=== PATIENT | female | born 2000 | race Two or more races ===

== ENCOUNTER 2021-08-03 09:00 | Outpatient (CLI) | payer OTHER | END 2021-08-03 09:30 | disposition home or self-care (01) | LOC: PPH VACUNA 09:00 | PROVIDERS: ATTEND Emergency Medicine Pediatric Emergency Medicine | DX: Z23 Encounter for immunization (principal) ==

== ENCOUNTER 2024-02-25 13:22 | Outpatient (CLI) | payer OTHER | END 2024-02-25 13:33 | disposition home or self-care (01) | LOC: SONOGRAMA 13:22 | PROVIDERS: ATTEND Internal Medicine Gastroenterology | DX: R10.31 Right lower quadrant pain (principal) ==